=== PATIENT | male | born 1975 ===

== ENCOUNTER 2022-05-08 11:04 | Emergency (ER) | payer SELFPAY ==
[~2022-05-08] VITALS: Ht 170.2 cm; Wt 85.5 kg
[2022-05-08 11:27] VITALS: TEMP 98.3
[2022-05-08] MEDS ORDERED: NAPROSYN500 MG PO ×2 (13:25→13:49)
[2022-05-08] MEDS ORDERED: VALIUM 5MG T5 MG/TAB PO ×2 (13:25→13:49)
[2022-05-08 13:51] VITALS: BP 120/71; PULSE 66
== END 2022-05-08 13:51 | disposition home or self-care (01) ==
LOC: COL.ER 11:04
DX: M54.16 Radiculopathy, lumbar region (principal); Z28.310 Unvaccinated for COVID-19
CPT/HCPCS: J1885

== ENCOUNTER 2022-05-11 00:44 | Emergency (ER) | payer SELFPAY ==
[~2022-05-11] VITALS: Ht 170.2 cm; Wt 85.5 kg
[~2022-05-11 00:44] MED LIST: NAPROSYN500 MG PO; VALIUM 5MG T5 MG/TAB PO
[2022-05-11 00:52] VITALS: TEMP 98.1
[2022-05-11] MEDS ORDERED: NORCO 325 MG-51 TAB PO (02:21)
[2022-05-11] MEDS ORDERED: FLEXERIL 1010 MG/TAB PO (02:22)
[2022-05-11 02:31] VITALS: BP 128/96; PULSE 80
== END 2022-05-11 02:31 | disposition home or self-care (01) ==
LOC: COL.ER 00:44
DX: S30.0XXA Contusion of lower back and pelvis, initial encounter (principal); Z28.310 Unvaccinated for COVID-19; W11.XXXA Fall on and from ladder, initial encounter; Y92.69 Other specified industrial and construction area as the place of occurrence of the external cause; Y99.0 Civilian activity done for income or pay
CPT/HCPCS: J1885